=== PATIENT | male | born 1975 | race American Indian/Alaskan Native ===

== ENCOUNTER 2018-08-09 19:53 | Emergency (ER) | payer OTHER, BC ==
[2018-08-09 20:46] VITALS: BMI 35.5
[2018-08-09 20:58] VITALS: RESP 18; O2SAT 97
[2018-08-09 23:31] LABS: BASO # 0.05 K/mm3 (0.0-2.0); BASO % 0.9 % (0.0-3.0); EOS # 0.2 (0.0-0.7); EOS % 3.1 % (1.5-5.0); GRAN # 2.79 (1.4-6.5); GRAN % 48.4 % (50.0-68.0); HEMOGLOBIN 14.6 g/dL (14.0-18.0); LYMPH # 2.2 (1.2-3.4); LYMPH % 38.9 % (22.0-35.0); MEAN CELL VOLUME 86.8 fl (80.0-105.0); MEAN CORPUSCULAR HEMOGLOBIN 29.6 pg (25.0-35.0); MONO # 0.5 (0.1-0.6); MONO % 8.7 % (1.0-6.0); RBC 4.94 10^6/uL (3.5-6.1); RED CELL DISTRIBUTION WIDTH 12.9 % (11.5-14.5); WHITE BLOOD COUNT 5.8 10^3/uL (4.5-11.0)
[2018-08-09 23:35] LABS: BLOOD UREA NITROGEN 14 mg/dL (7-21); CALCIUM 9.3 mg/dL (8.4-10.5); GFR NON-AFRICAN AMERICAN > 60; URIC ACID 7.3 mg/dL (3.5-8.5)
--- NOTE | 2018-08-09 23:59 | ED PDOC ---
Arrival/HPI <Erik Dorman - Last Filed: 08/10/18 00:09> - General Historian: Patient - History of Present Illness Narrative History of Present Illness (Text): 08/09/18 23:51 42 year old male, with a history of gout, presents to the emergency department for evaluation of pain to the left hand. Patient states he works for [employer], where he does a lot of repetitive movements and lifts boxes. Patient states on after leaving work on into Thursday, he began to have pain and swelling to the left second MCP. Patient informs he has had history of gout in the foot, knee, and elbow, but never in his hand. Patient denies any trauma or injury. Patient denies any numbness, weakness, back pain, neck pain, or any other complaints. Time/Duration: Prior to Arrival Symptom Onset: Gradual Symptom Course: Unchanged Context: Home <Carey Espinoza PA-C - Last Filed: 08/10/18 01:58> - General Chief Complaint: Finger,Hand,&Wrist Time Seen by Provider: 08/09/18 21:01 Past Medical History - Provider Review Nursing Documentation Reviewed: Yes - Infectious Disease Hx of Infectious Diseases: None - Endocrine/Metabolic Hx Diabetes Mellitus Type 2: Yes - Musculoskeletal/Rheumatological Hx Gout: Yes - Psychiatric Hx Substance Use: No - Anesthesia Hx Anesthesia: No Hx Anesthesia Reactions: No Hx Malignant Hyperthermia: No <Carey Espinoza PA-C - Last Filed: 08/10/18 01:58> Family/Social History - Physician Review Nursing Documentation Reviewed: Yes Family/Social History: No Known Family HX Smoking Status: Never Smoked Hx Alcohol Use: No Hx Substance Use: No <Carey Espinoza PA-C - Last Filed: 08/10/18 01:58> Allergies/Home Meds <Erik Dorman - Last Filed: 08/10/18 00:09> <Carey Espinoza PA-C - Last Filed: 08/10/18 01:58> Allergies/Adverse Reactions: Allergies No Known Allergies Allergy (Verified 04/08/17 10:59) Home Medications: Home Meds Medication Instructions Recorded Confirmed Dulaglutide [Trulicity] 1.5 mg SC DAILY 04/08/17 04/08/17 metFORMIN [glucOPHAGE] 850 mg PO BID 04/08/17 04/08/17 Review of Systems - Physician Review All systems were reviewed & negative as marked: Yes - Review of Systems Musculoskeletal: Arthralgias, Joint Swelling. absent: Back Pain, Neck Pain Neurological: absent: Focal Weakness, Other (no numbness) <Carey Espinoza PA-C - Last Filed: 08/10/18 01:58> Physical Exam Vital Signs Temp Pulse Resp BP Pulse Ox 08/09/18 20:56 98.7 F 82 18 130/87 97 <Erik Dorman - Last Filed: 08/10/18 00:09> Vital Signs Reviewed: Yes Vital Signs Temp Pulse Resp BP Pulse Ox 08/09/18 20:56 98.7 F 82 18 130/87 97 Temperature: Afebrile Blood Pressure: Normal Pulse: Regular Respiratory Rate: Normal Appearance: Positive for: Well-Appearing, Non-Toxic, Comfortable Pain Distress: None Mental Status: Positive for: Alert and Oriented X 3 - Systems Exam Head: Present: Atraumatic, Normocephalic Pupils: Present: PERRL Mouth: Present: Moist Mucous Membranes Back: Present: Normal Inspection Upper Extremity: Present: Normal ROM, NORMAL PULSES, Tenderness (Moderate, to the left second MCP), Swelling (Moderate, to the left second MCP), Neurovascularly Intact, Capillary Refill < 2s, Norm 2-Pt Discrimination. No: Temperature Abnormalties, Deformity Neurological: Present: GCS=15, CN II-XII Intact, Speech Normal, Motor Func Grossly Intact Skin: Present: Warm, Dry, Normal Color. No: Rashes Psychiatric: Present: Alert, Oriented x 3, Normal Insight, Normal Concentration <Carey Espinoza PA-C - Last Filed: 08/10/18 01:58> Medical Decision Making - Lab Interpretations Lab Results: 08/09/18 23:19 08/09/18 23:19 Lab Results 08/09/18 23:19: Sodium 140, Potassium 4.5, Chloride 105, Carbon Dioxide 24, Anion Gap 15, BUN 14, Creatinine 0.9, Est GFR ( Amer) > 60, Est GFR (Non- Af Amer) > 60, Random Glucose 215 H, Uric Acid 7.3, Calcium 9.3 08/09/18 23:19: WBC 5.8, RBC 4.94, Hgb 14.6, Hct 42.9, MCV 86.8, MCH 29.6, MCHC 34.0, RDW 12.9, Plt Count 256, MPV 11.0, Gran % 48.4 L, Lymph % (Auto) 38.9 H, Josephine % (Auto) 8.7 H, Eos % (Auto) 3.1, Baso % (Auto) 0.9, Gran # 2.79, Lymph # (Auto) 2.2, Josephine # (Auto) 0.5, Eos # (Auto) 0.2, Baso # (Auto) 0.05 - RAD Interpretation Radiology Orders: 08/09/18 21:34 HAND LEFT 3 VIEWS ROUTINE [RAD] Stat <Erik Dorman - Last Filed: 08/10/18 00:09> ED Course and Treatment: 08/10/18 00:03 Impression: 42 year old male presents with swelling and pain to left hand. Plan: -- X-ray left hand -- Reassess and disposition Prior Visits: Notes and results from previous visits were reviewed. Progress Notes: XR L hand : no fracture, no abnormality. Labs reviewed and wnl, including uric acid. Kodi wrap and cock up velcro splint applied. Advised to rest, ice and elevate the hand. Diagnosis of possible contusion vs overuse syndrome d/w the patient. Advised to follow up with ortho referral in 1-2 days without fail. Advised to take motrin prn for pain. Return to the emergency room at any time for any new or worsening symptoms. Patient states he fully agrees with and understands discharge instructions. States that he agrees with the plan and disposition. Verbalized and repeated discharge instructions and plan. I have given the patient opportunity to ask any additional questions. - Lab Interpretations Lab Results: 08/09/18 23:19 08/09/18 23:19 Lab Results 08/09/18 23:19: Sodium 140, Potassium 4.5, Chloride 105, Carbon Dioxide 24, Anion Gap 15, BUN 14, Creatinine 0.9, Est GFR ( Amer) > 60, Est GFR (Non-Af Amer) > 60, Random Glucose 215 H, Uric Acid 7.3, Calcium 9.3 08/09/18 23:19: WBC 5.8, RBC 4.94, Hgb 14.6, Hct 42.9, MCV 86.8, MCH 29.6, MCHC 34.0, RDW 12.9, Plt Count 256, MPV 11.0, Gran % 48.4 L, Lymph % (Auto) 38.9 H, Josephine % (Auto) 8.7 H, Eos % (Auto) 3.1, Baso % (Auto) 0.9, Gran # 2.79, Lymph # (Auto) 2.2, Josephine # (Auto) 0.5, Eos # (Auto) 0.2, Baso # (Auto) 0.05 - RAD Interpretation Radiology Orders: 08/09/18 21:34 HAND LEFT 3 VIEWS ROUTINE [RAD] Stat <Carey Espinoza PA-C - Last Filed: 08/10/18 01:58> - PA / REGIONAL PRODUCTION MANAGER / Resident Statement / has reviewed & agrees with the documentation as recorded. / has examined the patient and agrees with the treatment plan. <Erik Dorman - Last Filed: 08/10/18 00:09> - PA / REGIONAL PRODUCTION MANAGER / Resident Statement / has reviewed & agrees with the documentation as recorded. - Scribe Statement The provider has reviewed the documentation as recorded by the Reginald Paez Provider Scribe Attestation: All medical record entries made by the Pabloibleonid were at my direction and personally dictated by me. I have reviewed the chart and agree that the record accurately reflects my personal performance of the history, physical exam, medical decision making, and the department course for this patient. I have also personally directed, reviewed, and agree with the discharge instructions and disposition. <Carey Espinoza PA-C - Last Filed: 08/10/18 01:58> Disposition/Present on Arrival <Erik Dorman - Last Filed: 08/10/18 00:09> - Present on Arrival Any Indicators Present on Arrival: No History of DVT/PE: No History of Uncontrolled Diabetes: No Urinary Catheter: No History of Decub. Ulcer: No History Surgical Site Infection Following: None - Disposition Have Diagnosis and Disposition been Completed?: Yes Disposition Time: 00:00 Patient Plan: Discharge <Carey Espinoza PA-C - Last Filed: 08/10/18 01:58> - Disposition Diagnosis: Hand contusion Disposition: HOME/ ROUTINE Patient Problems: Current Active Problems Problem Status Onset Hand contusion Acute Condition: STABLE Discharge Instructions (ExitCare): Contusion (DC) Additional Instructions: Thank you for letting us take care of you today. You were treated for hand contusion vs overuse syndrome. The emergency medical care you received today was directed at your acute symptoms. Rest, ice and elevate, apply ice, wear splint for comfort. It may take several days for your symptoms to resolve. Return to the Emergency Department if your symptoms worsen, do not improve, or if you have any other problems. Please contact your doctor in 2 days for re-evaluation and follow up / or call one of the physicians/clinics you have been referred to that are listed on the Patient Visit Information form that is included in your discharge packet. Bring any paperwork you were given at discharge with you along with any medications you are taking to your follow up visit. Our treatment cannot replace ongoing medical care by a primary care provider (PCP) outside of the emergency department. Thank you for allowing the [facility] team to be part of your care today. If you had an X-Ray : A Radiologist will review the ED reading if any change in treatment is needed we will contact you. Referrals: Austin Mccloud DO [Staff Provider] - Follow up with primary Forms: [facility] ([place]), WORK NOTE
[2018-08-10 00:16] VITALS: PULSE 80; TEMP 98.5
[2018-08-10 04:03] VITALS: BP 128/72
--- NOTE | 2018-08-10 09:10 | RAD ---
PROCEDURE: Left Hand Radiographs. HISTORY: pain COMPARISON: None. FINDINGS: BONES: Normal. No fracture. JOINTS: Normal. No osteoarthritic changes. SOFT TISSUES: Normal. OTHER FINDINGS: None. IMPRESSION: Normal left hand radiographs.
== END 2018-08-10 00:52 | disposition home or self-care (01) ==
LOC: ED 19:53
DX: S60.222A Contusion of left hand, initial encounter (principal); X50.9XXA Other and unspecified overexertion or strenuous movements or postures, initial encounter; Y99.0 Civilian activity done for income or pay; E11.9 Type 2 diabetes mellitus without complications